=== PATIENT | female | born 1970 | race Caucasian/White ===

== ENCOUNTER 2018-10-09 16:07 | Outpatient (REF) | payer OTHER, SELFPAY ==
--- NOTE | 2018-10-09 15:15 | PAPFT_PTH ---
PATIENT: EVER HILARIO LOC: [facility] U#:[id number] AGE/SX: 48/F ROOM: RE10/09/[address]: Merle Proctor : 1970 BED: DIS: 10/09/2018 SPEC #: [id number] RECD: 10/12/18 13:06 STATUS: KEO DODSON #: [id number] MISHA: 10/09/18 15:[address]: Merle Proctor DEPT: [facility] Cytology RECD BY: Brigitte Sams Tissues: 1 - CX/ENDOCX FOR PAP SMEARS Procedures: PAP THIN PREP/[facility] Screening HPV DNA PROBE Comments: [id number] (CHLAMYDIA/GC)
[2018-10-09 21:28] LABS: Cholesterol 177 mg/dL (50-200); HDL Cholesterol 83 mg/dL (40-60); LDL CHOLESTEROL 74 mg/dL (<100); Triglyceride 79 mg/dL (30-150)
[2018-10-13 14:32] LABS: Chlamydia Result Negative; GC Result Negative; Specimen Description SEE COMMENTS
== END 2018-10-09 16:27 ==
LOC: NCHCN 16:07
PROVIDERS: PCP Nurse Practitioner Family; Visit Provider Nurse Practitioner Family
DX: N39.0 Urinary tract infection, site not specified (principal); Z00.00 Encounter for general adult medical examination without abnormal findings; H16.202 Unspecified keratoconjunctivitis, left eye; Z12.4 Encounter for screening for malignant neoplasm of cervix; Z11.51 Encounter for screening for human papillomavirus (HPV); Z01.419 Encounter for gynecological examination (general) (routine) without abnormal findings
CPT/HCPCS: 80061; 83721; 87491; 87591; 88142; 84443; 87624